=== PATIENT | male | born 1945 | race Caucasian/White ===

== ENCOUNTER → 2023-11-04 12:52 | Outpatient (REF) | payer MEDICARE, OTHER, SELFPAY | LOC: DHCBC MAIN 12:52 | PROVIDERS: ATTENDING PHYSICIAN Internal Medicine Cardiovascular Disease; FAMILY PHYSICIAN Family Medicine | DX: I47.29 Other ventricular tachycardia (principal) | CPT/HCPCS: 93306 ==

== ENCOUNTER → 2024-01-02 13:00 | Outpatient (REF) | payer MEDICARE, OTHER, SELFPAY | LOC: MRI 13:00 | PROVIDERS: ATTENDING PHYSICIAN Physical Medicine & Rehabilitation; FAMILY PHYSICIAN Family Medicine | DX: M54.16 Radiculopathy, lumbar region (principal) | CPT/HCPCS: 72148 ==

== ENCOUNTER 2024-04-19 10:33 | Outpatient (RCR) | payer MEDICARE, OTHER, SELFPAY ==
[2024-04-13 13:10] VITALS: BP 156/81
[2024-04-13] MEDS: NSS 250 IV (13:15)
[2024-04-13] MEDS: FERAHEME 117 MG IV (13:15)
[2024-04-13 14:11] VITALS: BP 151/63
[2024-04-19 10:45] VITALS: BP 106/53
[2024-04-19] MEDS: NSS 250 IV (10:56)
[2024-04-19] MEDS: FERAHEME 117 MG IV (10:56)
[2024-04-19 12:00] VITALS: BP 148/74
== END 2024-04-20 08:28 | disposition home or self-care (01) ==
LOC: OID 10:33
PROVIDERS: ATTENDING PHYSICIAN Specialist; FAMILY PHYSICIAN Family Medicine
DX: I12.9 Hypertensive chronic kidney disease with stage 1 through stage 4 chronic kidney disease, or unspecified chronic kidney disease (principal); Z94.0 Kidney transplant status; D63.1 Anemia in chronic kidney disease; E11.21 Type 2 diabetes mellitus with diabetic nephropathy; N18.4 Chronic kidney disease, stage 4 (severe); Z86.39 Personal history of other endocrine, nutritional and metabolic disease
CPT/HCPCS: 96361; 96365; Q0138

== ENCOUNTER → 2024-07-02 11:51 | Outpatient (REF) | payer MEDICARE, OTHER, SELFPAY | LOC: HWCARD 11:51 | PROVIDERS: ATTENDING PHYSICIAN Internal Medicine Cardiovascular Disease; FAMILY PHYSICIAN Family Medicine | DX: I48.0 Paroxysmal atrial fibrillation (principal) | CPT/HCPCS: 93005 ==

== ENCOUNTER 2024-08-13 06:50 | Day surgery (SDC) | payer MEDICARE, OTHER, SELFPAY ==
[2024-08-03 10:46] VITALS: BMI 28.5
[2024-08-13 08:00] LABS: Glucose - Point of Care 96 mg/dl (70-99)
--- NOTE | 2024-08-13 08:22 | ITS.CL.CARDI ---
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
Cardioversion
Procedure Report:
Date of Procedure: 08/13/2024.
Procedure: Cardioversion.
Indication: Symptomatic atrial fibrillation.
Performing Physician: Teresa Shetty MD
Technique: The patient was brought to the holding area. Signed informed consent was obtained. A time out was called and performed. The patient was sedated by a member of the anesthesia service. Anticoagulation status was reviewed and was appropriate
(Eliquis 5mg bid, no missed doses in last 21 days). R-2 pads were placed anteriorly and posteriorly. A 200 J synchronized biphasic shock restored normal sinus rhythm without significant bradycardia. There were no complications.
Conclusion: Uncomplicated cardioversion from atrial fibrillation to sinus rhythm with intermittent ventricular pacing.
Recommendation: Routine post cardioversion care. Continue custodial anticoagulation.
cc: Kaitlin
== END 2024-08-13 08:58 | disposition home or self-care (01) ==
LOC: CATH 06:50
PROVIDERS: ATTENDING PHYSICIAN Internal Medicine Cardiovascular Disease; FAMILY PHYSICIAN Family Medicine; OTHER PHYSICIAN Internal Medicine Cardiovascular Disease
DX: I48.0 Paroxysmal atrial fibrillation (principal); I12.9 Hypertensive chronic kidney disease with stage 1 through stage 4 chronic kidney disease, or unspecified chronic kidney disease; E11.22 Type 2 diabetes mellitus with diabetic chronic kidney disease; N18.4 Chronic kidney disease, stage 4 (severe); E78.5 Hyperlipidemia, unspecified; I49.5 Sick sinus syndrome; G47.33 Obstructive sleep apnea (adult) (pediatric); Z94.0 Kidney transplant status; Z95.0 Presence of cardiac pacemaker; Z86.73 Personal history of transient ischemic attack (TIA), and cerebral infarction without residual deficits; Z87.891 Personal history of nicotine dependence; Z79.85 Long-term (current) use of injectable non-insulin antidiabetic drugs; Z79.01 Long term (current) use of anticoagulants
CPT/HCPCS: 82962; 92960; 93005

== ENCOUNTER → 2024-08-24 12:24 | Outpatient (REF) | payer MEDICARE, OTHER, SELFPAY | LOC: HWRAD 12:24 | PROVIDERS: ATTENDING PHYSICIAN Family Medicine; FAMILY PHYSICIAN Family Medicine | DX: M25.561 Pain in right knee (principal); M25.562 Pain in left knee | CPT/HCPCS: 73562; 73565 ==

== ENCOUNTER 2024-10-23 10:10 | Day surgery (SDC) | payer MEDICARE, OTHER, SELFPAY ==
[2024-10-18 09:51] VITALS: BMI 29.7
[2024-10-23] VITALS (16 sets, daily range): BP systolic 119–157; BP diastolic 59–81; BMI 28.3
[2024-10-23 11:09] LABS: Glucose - Point of Care 123 mg/dl (70-99)
[2024-10-23 13:28] LABS: ACT-LR - POC 295 Seconds (116-155)
[2024-10-23 13:48] LABS: ACT-LR - POC 353 Seconds (116-155)
--- NOTE | 2024-10-23 14:55 | ITS.CL.ABL ---
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
Ablation
Procedure Report:
AFIB / A flutter ablation:
Mr. Li is a very pleasant 79 yr old gentleman with medical history significant for symptomatic persistent atrial fibrillation s/p AF ablation on 01/21/25 with PVI is here in the EP lab for atrial fibrillation / flutter ablation
Date of Procedure:
10/23/2024
Indications:
Symptomatic persistent atrial fibrillation / atrial flutter
Pre-Operative Diagnosis:
Persistent atrial fibrillation / atrial flutter
Post-Operative Diagnosis:
Persistent atrial fibrillation / atrial flutter
Procedure Performed:
Redo atrial fibrillation ablation
Roof line formation for atypical roof dependent atrial flutter
Posterior wall isolation ablation
Left atrial anterior wall tachycardia ablation
Biatrial flutter ablation
Ablation of anterior wall flutter line of block creation for patrizia-mitral flutter
Performing Physician:
Migue Dang MD
Assistants:
EP staff
Anesthesia:
See anesthesia records
Detailed Description of the Procedure:
Written informed consent was obtained from the patient after a full explanation of the risks and benefits of the procedure including the risks of sedation and anesthesia.
The patient was brought to the electrophysiology laboratory in stable condition in fasting state. Continuous electrocardiographic and hemodynamic monitoring was initiated.
The initial rhythm was sinus.
The procedure site was meticulously prepared with surgical scrub and allowed to dry with no pooling. Sterile draping was applied to cover the procedure site. The image intensifier was draped with sterile bag and positioned over the patient. After
infusion of local anesthetic, vascular access was obtained under ultrasound guidance and sheaths were placed over guide wire as detailed below.
The images of the ultrasound of the femoral vessels were stored in patient chart.
With right iliac fossa location of transplanted kidney, the fluoroscopy was used and long sheaths were placed to the IVC over the guidewires.
Sheath and Catheter Placement:
Given patient renal transplant, long sheaths were used for the access
Sheaths:
��������� Agilis sheath in right femoral vein upgraded from 8Fr in right femoral vein
��������� 9Fr in left femoral vein
Catheters:
��������� The Affera Sphere 9 catheter -bidirectional D/F� - at locations of HRA, RV, LA and LV.
��������� ICE catheter -AccuNav -� at locations of RA, SVC, and RV.
Heparin was initiated after the access was obtained.
Intracardiac ECHO:
An 8-Bengali AcuNav intracardiac ECHO (ICE) probe was advanced through the 9-Bengali sheath in the left femoral vein into the right atrium under fluoroscopic and ICE ultrasound image guidance and a baseline ECHO study was performed. The left atrial
size was dilated. There was trace tricuspid regurgitation. The aortic valve was grossly normal. There was normal left ventricular size and function. There is a trace pericardial effusion. The IVONNE has normal low velocities. The pulmonary had good
flow identified.
Of note, there was fibrous band noted on the pacemaker lead. The fibrous band was small and risks and benefits were discussed and a consultation from Dr. Xiong was obtained who agreed that the risk is low and the instrumentation is already done
to the right atrium before the fibrous attachment noted. Decision was made to proceed with the atrial fibrillation ablation as the risk onwards appears low.
During the procedure, ICE was used for monitoring of complications, guidance of trans-septal puncture, monitor the catheter position and tracking ablation lesions. No change in the pericardial space noted throughout the procedure.
Trans-septal Puncture:
Heparin was initiated and infused to maintain appropriate ACT. A J-tipped guidewire was advanced through into the superior vena cava under fluoroscopic and ICE guidance. The Agilis sheath with BRK needle was advanced into the superior vena cava over
the guidewire. The apparatus was withdrawn until it was in contact with the fossa ovalis. The position was adjusted based on fluoroscopy and ultrasound images from ICE. Under fluoroscopic, hemodynamic and ICE ultrasound guidance, left atrium was
cannulated by advancing the needle. Once atrial septum was cannulated, the needle was pulled back and the guide wire was advanced through the needle into the left atrium. The guide wire was advanced into the left superior pulmonary vein. Both the
sheath and the dilator was advanced into the left atrium. The dilator with the needle was withdrawn. Blood was aspirated from the Agilis sheath and arterial blood confirmed. The sheath was flushed. Saline injection noted into the left atrium on ICE.
The waveform of the LA pressure was recorded. The mapping catheter was advanced in the Agilis sheath into the left pulmonary vein.
3D Electroanatomic Mapping:
Using the Sphere 9 Affera catheter advanced through Agilis sheath into the left atrium, an electroanatomic map (EAM) of the left atrium was created using Cream.HRa� mapping system with Prism-1 software. The map was used for localization of catheter
position and tacking of ablation lesions. The EAM of the left atrium showed a total of 4 PVs with two left and the two right sided pulmonary veins with all electrically isolated from the body the LA. It showed scattered scar on the posterior and
large area of scar on anterior bahena of the LA. The LA was dilated in size.
Following the EAM, preparation were made for ablation.
Ablation:
Ablation # 1: Atypical atrial flutter / Roof line Formation:
Given silent pulmonary veins, the decision was made to proceed with roof line formation for the AF/Flutter.
Pulsed field ablation was performed using an open irrigation, bidirectional, contact sensing, dual energy ablation catheter (Cream.HRa sphere -9). A set of pulsed field ablations were placed on the roof line connecting the left superior pulmonary vein
ablation lesions to the right superior pulmonary vein lesions rings.
The LA was mapped with The Cream.HRa� mapping system with Prism-1 software in sinus rhythm confirming the line of block at the ablation lesions lines.
Ablation # 2: Posterior wall isolation with the Box lesions set Formation:
There was a significant fractionation seen in the posterior wall and LA AF foci along with CFAE made it clear as the posterior wall is critical in maintaining the atrial fibrillation and the decision was made to isolate the posterior wall by
creating a �Box� lesions.
A set of Pulsed field ablations were placed on the floor line connecting the left inferior pulmonary vein ablation lesions to the right inferior pulmonary vein lesions rings.
The sphere 9 in the posterior wall showed entrance block and the pacing from the posterior wall showed no exit from the box lesions confirming the exit block.
Ablation # 3: Posterior wall ablation:
With the box lesion created and block confirmed, the decision was made to ablate the posterior wall severing epicardial connections and decision was made to create the Y ablation on the posterior wall.
A series of ablations were placed connecting the junction of left superior pulmonary vein and the roof line to the junction of right inferior pulmonary vein and the floor line ablating the ganglion plexi next to both antra.
Ablation # 4: Left atrial anterior wall tachycardia ablation
The short burst of AT was noted coming from the LA septal wall. The AT was short lived to be mapped well or entrain. Possibility of micro-reentry vs focal AT was entertained and fractionated signals were identified and ablated using pulsed wave
energy.
Ablation # 5: Ablation of anterior wall flutter line of block creation for patrizia-mitral flutter
There was an area of scar on the anterior wall likely secondary to mitral regurgitation jet. The scar area was perfect substrate for mitral flutter. With the onset of tachycardia noted, the possibility of mitral flutter was also entertained. The
decision was made to create anterior mitral flutter line through the scar. Using pulsed field ablation the anterior scar was connected to the right superior pulmonary vein anteriorly and to the mitral annulus below the left atrial appendage.
Ablation # 6: Biatrial flutter ablation
Patient was noted to have atrial flutter which was 380 ms. There was mapped and was coming from the Scar bundle and going back to the right side using the coronary sinus. This by atrial flutter was ablated at the Scar bundle region
anterior to the right superior pulmonary vein. With ablation, the tachycardia terminated into normal sinus rhythm.
The scar of the Scar bundle area was connected to the roofline as well as to the right superior pulmonary vein to avoid any recurrent reentry tachycardia.
EP study:
Sinus Node Function: The sinus node functions are within acceptable normal range.
Atrioventricular Daniel Function: Normal AV conduction noted.
Procedure End
ICE study was done again that showed no epicardial accumulation. No complications noted.
Following the completion of the EP study, catheters were removed. Protamine 30 mg was given at the end of the procedure and ACT was checked repeatedly. The sheaths were removed and hemostasis achieved with VASCADE and manual compression after
acceptable ACT is achieved.
Left atrial Pressure:
Pre-Procedure: Mean LA pressure was 11mmHg
Post-Procedure: Mean RA pressure was 9mmHg
Estimated Blood loss:
<10 cc
Specimens Removed:
None.
Implants / Devices:
None
Urine output:
None
Packs / Drains/ Tubes:
None
Instrument / Sponge Count Correct:
Yes
Complications of the Procedure:
None
Condition of Patient at Time of Transfer:
Hemodynamically stable with no neurological or vascular compromise.
Summary:
��������� Successful Redo atrial fibrillation ablation, Roof line formation for atypical roof dependent atrial flutter, Posterior wall isolation ablation, Left atrial anterior wall tachycardia ablation, Biatrial flutter ablation, Ablation of
anterior wall flutter line of block creation for patrizia-mitral flutter
Figures from the Procedure:
Figure 1: The electroanatomic mapping (EAM) of the left atrium with bipolar voltage (purple indicates normal electrical activity with red as no myocardial muscle electric activity indicating a line of block or scar.
--- NOTE | 2024-10-23 16:11 | CM ---
Reviewed chart. Met with Mr. Li to review discharge plans. He states prior to admission he resides with his spouse in a two story home without any steps to enter. He states he has a full flight of steps to get to bedroom/fulll bathroom. He
states he has an in-law suite on the first floor. He states prior to admission he was independent with ambulation and adls. He states he does nit have any DME in the home. He states he has prescription plan and uses [facility]. The
discharge plan is to return home with his spouse when medically stable.
[2024-10-23] MEDS: PROGRAF 1 MG PO (19:58)
[2024-10-23] MEDS: MYFORTIC DELAYED REL. 360 MG PO (19:58)
[2024-10-23] MEDS: ELIQUIS 5 MG PO (19:59)
--- NOTE | 2024-10-23 22:15 | PTCARENOTE ---
Pt refused PO prednisone at 2200. Pt requested to have medication in morning. RN explained that only provider could make adjustment/schedule change. Pt verbalized understanding and decline medication or wanting further information.
[2024-10-23] MEDS: COZAAR 12.5 MG PO (22:31)
[2024-10-23] MEDS: LIPITOR 40 MG PO (22:31)
[2024-10-23] MEDS: DELTASONE PO (23:08)
--- NOTE | 2024-10-23 23:10 | PTCARENOTE ---
Rec'd at change of shift. Pt off bed rest at 19:25, updated on plan of care, and denies any pain or discomfort. On TELE monitor in SR with occasional a-pacing, VSS, and AAO*3. R groin site with dressing CDI. Pt agreed to R lower extremity
restriction. See flowsheet and Mar for full assessment. Pt resting with call saeed in reach.
[2024-10-24 03:53] VITALS: BP 157/81
[2024-10-24 03:54] VITALS: BP 157/81
[2024-10-24 04:01] VITALS: BP 160/77
[2024-10-24 04:10] VITALS: BMI 28.3
[2024-10-24 04:20] LABS: Hematocrit 28.4 % (39.0-52.0); Hemoglobin 9.6 g/dL (13.0-18.0); Mean Corp Hgb Conc. 33.8 g/dL (33.0-37.0); Mean Corpuscular Hgb 33.9 pg (27.0-31.0); Mean Corpuscular Volume 100.4 fL (80.0-94.0); Platelet Count 167 10^3/uL (130-400); Red Blood Cell Count 2.83 10^6/uL (4.70-6.10); Red Cell Dist. Width 14.2 % (11.5-14.5); White Blood Cell Count 6.4 10^3/uL (4.8-10.8)
[2024-10-24 05:06] LABS: Blood Urea Nitrogen 19 mg/dl (9-20); Calcium 8.5 mg/dl (8.4-10.2); Carbon Dioxide 19 mmol/L (22-30); Chloride 110 mmol/L (98-107); Estimated Creatinine Clearance 76 ml/min; Glucose 101 mg/dl (70-99); Magnesium 1.9 mg/dl (1.6-2.3); Potassium 4.3 mmol/L (3.5-5.1); Sodium 138 mmol/L (135-145); eGFR > 60.00
[2024-10-24 07:01] VITALS: BP 122/77
--- NOTE | 2024-10-24 07:55 | PTCARENOTE ---
Assumed care of pt from prev nsg shift; Pt AAOx3 w/no c/o CP or SOB; Pt does c/o 'mild cough & sore throat' which is new for him. This RN explained that it is normal post PVI due to the breathing tube used during the procedure. Pt offered PRN pain
medicine & pt declined. Pt's VSS w/HR in 60's & BP 122/77 this AM. Pt's R groin access site w/dressing C/D/I w/no signs or symptoms of bleeding or hematoma. Pt awaiting D/C. Plan of care ongoing.
--- NOTE | 2024-10-24 07:58 | W.PN.CD ---
Today's Communication / Plan
-
- Discharge home
- Follow up in 2 weeks.
Impression / Plan
-
79 yrs old man with recurrent atrial fibrillation s/p AF ablation in 01/21/2022, with [id number] score of 6 secondary to age, hypertension, diabetes, as well as history of CVA incidentally noted on head CT July 09, 2023. A chronic right lacunar
infarct was identified with no reported deficits. He has hyperlipidemia as well as sick sinus syndrome for which a Medtronic dual-chamber pacemaker was placed November 2021. He has obstructive sleep apnea, compliant with his CPAP, and a history of
remote tobacco abuse. He has recently undergone a kidney transplant successfully February 11, 2024, due to end-stage renal disease. He is tolerating transplant and is on multiple immuno modulators.
Atrial Fibrillation
- s/p redo AF ablation
- The previous PVI was still isolated with further progression of the the disease in the LA with extensive scarring in the LA noted
- Redo ablation included, PWI, roof and mitral flutter ablation. 10/23/24
Pacemaker lead fibrous strand
- Fibrous strands noted on the pacemaker lead - unchanged post ablation.
- largest size was below 0.3 cm.
- Anticoagulation for now.
Hypertension.
- On Losartan 12.5 mg qhs
- continue
Hyperlipidemia.
- On Lipitor and Ozempic
SSS
-s/p Medtronic dual-chamber pacemaker 12/18/2021.
- Working normally
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
- Cr is normal
- On MMF and Tacro with Prednisone
- Right iliac fossa. The venous access was from inguinal vessel in right femoral veins
- Long sheaths and no damage to the the transplanted kidney.
DDD with spinal stenosis and radiculopathy.
CVA,
- right lacunar, chronic, incidentally noted on CT 07/09/2023,
- without reported deficits(R peripheral field cut on this exam).
Type 2 IDDM.
Remote tobacco abuse.
Obstructive sleep apnea, CPAP compliant.
Physical Exam
Vital Signs/Labs
Vital Signs
Temp Pulse Resp BP Pulse Ox
98.9 F 70 18 160/77 98
10/24/24 07:02 10/24/24 06:15 10/24/24 07:02 10/24/24 04:01 10/24/24 07:02
10/23/24 10/24/24 10/25/24
06:59 06:59 06:59
Actual Weight 85.5 kg
10/24/24 04:04
10/24/24 04:04
Magnesium 1.9 mg/dl (1.6-2.3) 10/24/24 04:04
Physical Exam
Constitutional: No acute distress and Comfortable
EENT: Anicteric and Moist mucous membranes
Cardiovascular: Rhythm & rate is regular, Pedal edema is absent, JVD pressure is normal and Systolic murmur absent
Respiratory: Respiratory effort normal, Lungs clear to auscul. and Wheeze Absent
GI: Non tender, Normal bowel sounds and Distention present
Neuro/Psych: Alert, Oriented and AO x 3
Other: Cath Site and Cardiac Device Site
Data Reviewed
-
Date of Service: October 24, 2024
Medical Decision Making: Reviewed Test Results, Test Interpretation and Review of Case with other Provider
EKG: Tracing Personally Visualized and interpreted
Echo: Report Reviewed by me
Labs: Labs Reviewed by me
Old Records: Reviewed
[2024-10-24] MEDS: ELIQUIS 5 MG PO (09:06)
[2024-10-24] MEDS: MYFORTIC DELAYED REL. 360 MG PO (09:06)
[2024-10-24] MEDS: CLARITIN 10 MG PO (09:06)
[2024-10-24] MEDS: PROGRAF 1 MG PO (09:06)
[2024-10-24] MEDS: LEXAPRO 20 MG PO (09:06)
[2024-10-24] MEDS: DELTASONE 5 MG PO (09:09)
--- NOTE | 2024-10-24 09:34 | W.DS.TRANS ---
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
-
Discharge Instructions:
Discharge Diagnosis/Procedures AFib, s/p ablation
Diet Low Cholesterol
Driving Restrictions No driving for 24 hours
Instructions:
Stand-Alone Forms: DC Instructions- Cath/EP Lab
Changes to Home Medications: No
Discharge Medications:
DC Medications w/original date entered in [facility]
apixaban 5 mg tablet (Eliquis) 5 mg PO BID 10/09/19
loratadine 10 mg tablet 10 mg PO DAILY 01/04/22
famotidine 20 mg tablet (Pepcid) 20 mg PO DAILYPRN PRN indigestion 04/13/24
mycophenolate sodium 180 mg tablet,delayed release (Myfortic) 360 mg PO BID 04/13/24
prednisone 5 mg tablet 5 mg PO HS 04/13/24
tacrolimus 1 mg capsule, immediate-release (Prograf) 1 mg PO BID 04/13/24
atorvastatin 40 mg tablet 40 mg PO HS 08/02/24
escitalopram oxalate 20 mg tablet 20 mg PO DAILY 08/02/24
losartan 25 mg tablet 12.5 mg PO HS 08/02/24
magnesium oxide 400 mg PO DAILY 08/02/24
semaglutide 1 mg/dose (4 mg/3 mL) subcutaneous pen injector (Ozempic) 1 mg SC FR 08/02/24
Home Medication Changes
Pending Results: No
--- NOTE | 2024-10-24 10:09 | PTCARENOTE ---
Pt's IV line & telemetry pack D/C'd; D/C instructions discussed w/pt. Pt left via wheelchair w/volunteer escorting pt out. Pt left w/personal belongings including cell phone & outpatient surgery rn.
== END 2024-10-24 10:11 | disposition home or self-care (01) ==
LOC: CATH 10:10
PROVIDERS: Nurse Practitioner Adult Health; ATTENDING PHYSICIAN Internal Medicine Cardiovascular Disease; FAMILY PHYSICIAN Family Medicine; OTHER PHYSICIAN Internal Medicine Cardiovascular Disease
DX: I48.19 Other persistent atrial fibrillation (principal); I48.4 Atypical atrial flutter; I47.19 Other supraventricular tachycardia; Z79.01 Long term (current) use of anticoagulants; Z79.52 Long term (current) use of systemic steroids; Z79.899 Other long term (current) drug therapy
CPT/HCPCS: 93655; C1769; C1766; C1894; C1892; C1759; C1733; 80048; 82962; 83735; 85027; 85347; 93005; 93656; 93657

== ENCOUNTER → 2024-12-27 06:31 | Outpatient (REF) | payer MEDICARE, OTHER, SELFPAY | LOC: RSP 06:31 | PROVIDERS: ATTENDING PHYSICIAN Nurse Practitioner; FAMILY PHYSICIAN Family Medicine | DX: Z79.899 Other long term (current) drug therapy (principal) | CPT/HCPCS: 94727; 94729; 88738; 94010 ==

== ENCOUNTER 2025-07-26 06:15 | Day surgery (SDC) | payer MEDICARE, OTHER, SELFPAY ==
[2025-07-26 07:35] LABS: Glucose - Point of Care 139 mg/dl (70-99)
== END 2025-07-26 09:25 | disposition home or self-care (01) ==
LOC: GI 06:15
PROVIDERS: ATTENDING PHYSICIAN Specialist; FAMILY PHYSICIAN Family Medicine
DX: Z12.11 Encounter for screening for malignant neoplasm of colon (principal); K57.30 Diverticulosis of large intestine without perforation or abscess without bleeding; D12.2 Benign neoplasm of ascending colon; D12.3 Benign neoplasm of transverse colon; D12.5 Benign neoplasm of sigmoid colon; K63.5 Polyp of colon; Z86.0101 Personal history of adenomatous and serrated colon polyps
CPT/HCPCS: 45385; 45380; 82962; 88305